=== PATIENT | female | born 1930 | race Caucasian/White ===

== ENCOUNTER 2017-01-23 09:42 | Emergency (ER) | payer MEDICARE ==
[~2017-01-23] VITALS: Ht 174 cm; Wt 60.5 kg
[~2017-01-23 09:42] MED LIST: CYANOCOBALAMIN PO; Calcium PO; LEVO125T50 PO; OMEG1CAP25 PO
[2017-01-23 09:45] VITALS: BP 124/52; PULSE 61; RESP 20; O2SAT 100
--- NOTE | 2017-01-23 10:05 | ED.REPORT ---
HPI-General Illness Date of Service January 23, 2017 ED Provider: Giselle Olmstead MD The patient is an 86 year old female with history of anemia and hypothyroidism, who was sent to the emergency department by her primary care provider for 2 months of lightheadedness and generalized weakness. The patient reports lightheadedness with standing or minimal exertion. She is normally very active and still water skis. She has tried drinking more water and adding ensure. Nothing has seemed to improved her symptoms. She has had a dry cough for the last 6 months. Nursing Notes Stated Complaint: SENT BY DR MORALES Chief Complaint: General Complaint Nursing Notes Reviewed: Yes Allergies: Coded Allergies: fentanyl (Verified Allergy, Severe, "DEATHLY ILL", 11/07/11) Scheduled Levothyroxine-Expunged Drug, Do Not Renew! (Levoxyl-Expunged Drug, Do Not Renew! ) 125 Mcg Tablet 125 MCG PO DAILY Miscellaneous Medications ([Cyanocobalamin (B12)]) MG PO ([Calcium]) MG PO [place]-3 Fatty Acids/Fish Oil-Expunged, Do Not ([place] 3 Fish Oil-Expunged, Do Not Renew!) 1 Cap.ec Capsule.dr QUINTERO PO INSTRUCTED TO STOP General Time Seen by MD: 10:03 Chief Complaint Weakness, Other (lightheadedness) Hx Obtained From: Patient, Primary care provider Arrived By: Walk-in Sudden in Onset?: No Onset Occurred: More than a week ago... Symptom Duration: Intermittent Severity: Current: No pain currently Severity: Maximum: No pain Recent Healthcare: No recent hospitalization, Recent doctor visit Similar Sx Previous: No Past Medical History Past Medical History Anemia Hypothyroidism Hx of meningitis Past Surgical History Reports: Appendectomy, Hysterectomy, Tonsillectomy Family History Noncontributory Social History Stays very active Other Social History: Good social support, Local resident Ambulatory Status Independent Review of Systems Full Review of Systems Constitutional: Reports: Weakness - generalized Respiratory: Reports: Non-productive cough Neurologic: Reports: Lightheaded, Weakness Complete sys rev & neg: except as marked. Physical Exam Orthostatics: laying down: BP 149/44 HR 61 standing: BP 112/31 HR 71, felt a little dizzy Vital Signs Vital Signs Date Time Temp Pulse Resp B/P Pulse Ox O2 Delivery O2 Flow Rate FiO2 01/23/17 12:24 68 14 146/40 97 Room Air 01/23/17 10:53 73 112/31 01/23/17 10:52 61 149/44 01/23/17 09:45 36.0 61 20 124/52 100 Room Air Initial VS: Reviewed Head / Eyes: Atraumatic, Normocephalic, PERRL ENT: Mucous membranes moist, Conjunctiva normal, No scleral icterus Neck: Supple, Non-tender, Full range of motion Lymphatic: No lymphadenopathy Extremities: Vascular intact, Neuro intact, No swelling, No tenderness Skin: Warm, Dry, No cyanosis Neurologic: Alert, Oriented, Nonfocal Psychiatric: Mood/affect normal, Behavior normal, Normal thought content General/Constitutional: Awake, Alert, Cooperative Respiratory / Chest: Breath sounds = bilat, No respiratory distress Fine crackles in the bases. Cardiovascular: Heart rate NL, Regular rhythm, Cap refill not delayed, Peripheral circulation NL, Pulses = bilaterally Heart Sounds / Murmur: Positive: Diastolic murmur present. Abdomen: Soft, No guarding, No rebound, BS normoactive, No distention, No hernia, No palpable mass, No pulsatile mass Tenderness/Guarding/Rebound: Positive: Tender suprapubic Minor discomfort to RLQ to right pelvic region. No masses. Female Genitourinary: Atraumatic, External genitalia NL, No bleeding, No discharge On bimanual exam the patient is tender at the right adnexal but I do not appreciate any masses. Rectum / Perineum: Atraumatic, Blood - occult heme -, director internal control passed, No gross blood Brown stool. Neurologic: Oriented X3, Speech NL, No motor deficits, No sensory deficits, CN II - XII intact, Cerebellar NL, Memory NL Interpretation & Diagnostics Lab Results Interpretation Result Diagram: 01/23/17 1050 01/23/17 1050 Test 01/23/17 10:50 01/23/17 12:30 White Blood Count 4.8th/mm3 (3.8-10.1) Red Blood Count 4.41mil/mm3 (3.90-5.20) Hemoglobin 12.8g/dL (12.0-15.6) Hematocrit 39.5% (35.0-46.0) Mean Corpuscular Volume 89.6fL (81-100) Mean Corpuscular Hemoglobin 29.0pg (27.0-35.0) Mean Corpuscular Hemoglobin Concent 32.4% (32.0-37.0) Red Cell Distribution Width 13.9% (12.3-15.4) Platelet Count 163bil/L (150-400) Neutrophils (%) (Auto) 56.6% (40-74) Lymphocytes (%) (Auto) 32.9% (14-46) Monocytes (%) (Auto) 7.1% (4-12) Eosinophils (%) (Auto) 1.9% (0-5) Basophils (%) (Auto) 1.3% (0-3) Sodium Level 139mEq/L (134-144) Potassium Level 4.5mEq/L (3.5-5.2) Chloride Level 102mEq/L (97-108) Carbon Dioxide Level 23mmol/L (18-29) Blood Urea Nitrogen 15mg/dL (8-27) Creatinine 0.49mg/dL (0.57-1.00) Estimat Glomerular Filtration Rate 172mL/min (>59) Glucose Level 91mg/dL (60-99) Calcium Level 9.0mg/dL (8.5-10.1) Total Bilirubin 0.9mg/dL (0.0-1.2) Aspartate Amino Transf (AST/SGOT) 21U/L (0-50) Alanine Aminotransferase (ALT/SGPT) 11U/L (0-32) Alkaline Phosphatase 66U/L (25-165) Troponin T < 0.010ug/L (0.0-0.011) Pro-B-Type Natriuretic Peptide 667.0pg/mL (0-738) Total Protein 6.2g/dL (6.4-8.4) Albumin 4.0g/dL (3.4-5.0) Procalcitonin 0.04ng/mL (0.00-0.08) Thyroid Stimulating Hormone (TSH) 1.020uIU/mL (0.450-4.500) Hold Urine Received (Received) ECG Interpretation ECG Interpretation: Sinus rhythm with a rate of 58 Changed from EKG taken on 10/21/2011 There are new flipped T waves in III and V2-V5, questions anterior ischemia Time: 11:41 Interpreted by: ED physician X-Ray Chest Interpretation Chest Xray Interpretation: IMPRESSION: No acute cardiopulmonary disease process. Dictated by: Dorota Blas MD, PhD on 01/23/2017 at 11:38 Interpretation / Wet Read by: Interpret - Radiologist CT Head Interpretation IMPRESSION: 1. Age related changes with no acute intracranial abnormality. Dictated by: Derrick Watson M.D. on 01/23/2017 at 12:14 Study: Head CT no contrast Interpretation / Wet Read by: Interpret - Radiologist Re-Eval/Medical Decision Med Decision/Clinical Course on depart layin/40 HR 56 standing 101/38 HR 68 (after 1 L of fluid and pt has full bladder suggesting appropriate hydration) Extensive workup has not revealed any abnormalities. Reviewed with her all findings including normal CBC CMP chest x-ray and even brain scan. There is reviewed with her primary care doctor Dr. Morales. At this point I think the next steps in her workup needs to be more thorough outpatient cardiac evaluation. Dr. Morales will arrange this and contact her for follow-up early next week. Source of Hx: Old records, Private physician Time of Eval: 11:03 Re-Evaluation/Progress Note: Discussed plan for pelvic and rectal exam. Time of Eval: 14:42 Re-Evaluation/Progress Note: Rechecked the patient. Discussed results, diagnosis, and plan for discharge with outpatient followup. All questions were addressed. Consultation : Referral / Consult Name: Kevin Morales MD Consulted With: Primary care physician Call Returned at: 14:02 Ferryboat Operator Helper: Will see in office, Agrees with eval, Agrees with plan Note: Discussed results and plan for discharge. He will see her in the clinic. Counseled Regarding: Diagnosis, Lab results, Need for follow-up, When/why to return to ED Discharge & Departure Primary Impression: Exertional dyspnea Additional Impressions: Weakness Orthostatic hypotension Ruled Out: Dehydration, Renal failure, Heart failure, Brain mass, Dilated cardiomyopathy, Acute coronary syndrome Disposition: Home Discharge Condition All VS Reviewed: Yes Condition: Stable Additional Instructions: Thank you for entrusting us with your care today. Your workup today included: labs, EKG, chest x-ray, and head CT. Your results are completely normal. I have not found a reason to explain your symptoms. I spoke with Dr. Morales. He would like to see you in his office next week. The next step will most likely be more heart studies as an outpatient. Continue to drink plenty of fluids. Seek care sooner for any other new or worsening symptoms. Referrals: Kevin Morales MD (PCP) Scribe Attestation Portions of this note were transcribed by Alexandra De La O. I, Dr. Olmstead personally performed the history, physical exam and medical decision-making; I reviewed and confirmed the accuracy of the information in the transcribed note. Signed by: Sergio Parr,01/23/2017 at 1500. copies to: Kevin Morales MD, Shawna L MD January 23, 2017 10:05 Alexandra De La O January 23, 2017 10:56
[2017-01-23 10:52] VITALS: BP 149/44; PULSE 61
[2017-01-23 10:53] VITALS: BP 112/31; PULSE 73
[2017-01-23] MEDS ORDERED: 0.9% Sodium Chloride 1,000 ML IV ONE (10:53)
[2017-01-23 11:06] LABS: BASOPHILS % (AUTO) 1.3 % (0-3); EOSINOPHILS % (AUTO) 1.9 % (0-5); MONOCYTES % (AUTO) 7.1 % (4-12); Mean Corpuscular Volume 89.6 fL (81-100); NEUTROPHILS % (AUTO) 56.6 % (40-74); Platelet Count 163 bil/L (150-400)
--- NOTE | 2017-01-23 11:40 | DRSVH ---
PROCEDURE: X-RAY CHEST ONE VIEW, PORTABLE ([id number]) INDICATIONS: syncope TECHNIQUE: One view of the chest was acquired. COMPARISON: [facility], , CHEST 1VW (PORTABLE), 03/24/2009, 23:45. FINDINGS: Surgical changes and devices: None. Lungs and pleura: No pleural effusions or pneumothorax. Lungs are clear. Mediastinum: Mediastinal contours appear normal. Heart size is mildly enlarged. Bones and chest wall: No suspicious bony lesions. Overlying soft tissues appear unremarkable. IMPRESSION: No acute cardiopulmonary disease process. Dictated by: Dorota Blas MD, PhD on 01/23/2017 at 11:38 Approved by: Dorota Blas MD, PhD on 01/23/2017 at 11:38
[2017-01-23 11:52] LABS: TROPONIN T < 0.010 ug/L (0.0-0.011)
--- NOTE | 2017-01-23 12:18 | DRSVH ---
PROCEDURE: CT BRAIN WITHOUT CONTRAST ([id number]) INDICATIONS: syncope TECHNIQUE: Noncontrast 4.5 mm thick angled axial sections acquired from the foramen magnum to the vertex, with c oronal reformats. COMPARISON: CT brain 10/29/2006 FINDINGS: Image quality: Excellent. CSF spaces: Basal cisterns are patent. No extra-axial fluid collections. The ventricles are symmet alberto in size and shape. Brain: No intracranial bleeds or masses. There is cerebral volume loss for age, with resultant vent ricular and sulcal prominence. There are periventricular and deep white matter chronic small vessel ischemic changes. There is intracranial internal carotid artery atherosclerosis. Skull and face: Calvarium and visualized facial bones appear intact, without suspicious lesions. Sinuses: Visualized sinuses and mastoids are clear. IMPRESSION: 1. Age related changes with no acute intracranial abnormality. Dictated by: Derrick Watson M.D. on 01/23/2017 at 12:14 Approved by: Derrick Watson M.D. on 01/23/2017 at 12:17
[2017-01-23 12:24] VITALS: BP 146/40; PULSE 68; RESP 14; O2SAT 97
[2017-01-23 15:09] VITALS: BP 156/52; PULSE 72; RESP 18; O2SAT 98
== END 2017-01-23 15:11 | disposition home or self-care (01) ==
LOC: SED 09:42
DX: R06.09 Other forms of dyspnea (principal); R53.1 Weakness; I95.1 Orthostatic hypotension; D64.9 Anemia, unspecified; E03.9 Hypothyroidism, unspecified; Z88.8 Allergy status to other drugs, medicaments and biological substances
CPT/HCPCS: 36415; 70450; 71010; 80053; 83880; 84145; 84443; 84484; 85025; 93005; 96360; 99285; J7030